=== PATIENT | female | born 1985 | race American Indian/Alaskan Native ===

== ENCOUNTER 2016-07-25 12:13 | Emergency (ER) | payer MEDICAID ==
[2016-07-25 12:59] VITALS: BP 105/68
--- NOTE | 2016-07-25 16:52 | Emergency Department Report ---
ED ENT HPI - General Chief complaint: Dental/Oral Stated complaint: TOOTHACHE/GUM ABCESS Time Seen by Provider: 07/25/16 16:10 Source: patient Mode of arrival: Ambulatory Limitations: No Limitations - History of Present Illness Initial comments: Patient states that she started to notice right lower tooth pain yesterday, tried tylenol and it helped initially but not helping anymore, pain worsened today; denies fevers and bleeding but admits to tasting some purulent discharge today; last time she went to a dentist was over 1 year ago - Related Data Previous Rx's Medication Instructions Recorded Last Taken Type Penicillin Vk [Veetids TAB] 500 mg PO QID #28 tablet 09/17/15 Unknown Rx Ibuprofen [Motrin 600 MG tab] 600 mg PO Q8H PRN #30 tablet 07/25/16 Unknown Rx Penicillin Vk [Veetids TAB] 500 mg PO QID #28 tablet 07/25/16 Unknown Rx traMADol [Ultram 50 MG tab] 50 mg PO Q6HR PRN #10 tablet 07/25/16 Unknown Rx Allergies Allergy/AdvReac Type Severity Reaction Status Date / Time No Known Allergies Allergy Verified 07/25/16 12:58 ED Dental HPI - General Chief complaint: Dental/Oral Stated complaint: TOOTHACHE/GUM ABCESS Time Seen by Provider: 07/25/16 16:10 Source: patient Mode of arrival: Ambulatory Limitations: No Limitations - Related Data Previous Rx's Medication Instructions Recorded Last Taken Type Penicillin Vk [Veetids TAB] 500 mg PO QID #28 tablet 09/17/15 Unknown Rx Ibuprofen [Motrin 600 MG tab] 600 mg PO Q8H PRN #30 tablet 07/25/16 Unknown Rx Penicillin Vk [Veetids TAB] 500 mg PO QID #28 tablet 07/25/16 Unknown Rx traMADol [Ultram 50 MG tab] 50 mg PO Q6HR PRN #10 tablet 07/25/16 Unknown Rx Allergies Allergy/AdvReac Type Severity Reaction Status Date / Time No Known Allergies Allergy Verified 07/25/16 12:58 ED Review of Systems ROS: Stated complaint: TOOTHACHE/GUM ABCESS Other details as noted in HPI ED Past Medical Hx - Past Medical History Hx Hypertension: No Hx Congestive Heart Failure: No Hx Diabetes: No Hx Deep Vein Thrombosis: No Hx Renal Disease: No Hx Sickle Cell Disease: No (Sickle Cell Trait) Hx Seizures: No Hx Asthma: No Hx COPD: No Hx HIV: No - Surgical History Additional Surgical History: X 2 - Social History Smoking Status: Never Smoker Substance Use Type: Alcohol - Medications Home Medications: Home Medications Medication Instructions Recorded Confirmed Last Taken Type Penicillin Vk [Veetids TAB] 500 mg PO QID #28 tablet 09/17/15 Unknown Rx Ibuprofen [Motrin 600 MG tab] 600 mg PO Q8H PRN #30 tablet 07/25/16 Unknown Rx Penicillin Vk [Veetids TAB] 500 mg PO QID #28 tablet 07/25/16 Unknown Rx traMADol [Ultram 50 MG tab] 50 mg PO Q6HR PRN #10 tablet 07/25/16 Unknown Rx ED Physical Exam - General Limitations: No Limitations ED Course Vital Signs 07/25/16 12:57 Temperature 99.2 F Pulse Rate 62 Respiratory 16 Rate Blood Pressure 105/68 O2 Sat by Pulse 100 Oximetry Critical care attestation.: If time is entered above; I have spent that time in minutes in the direct care of this critically ill patient, excluding procedure time. ED Disposition Clinical Impression: Periapical abscess, Dental caries Disposition: DISCHARGED TO HOME OR SELFCARE Is pt being admited?: No Does the pt Need Aspirin: No Condition: Stable Instructions: Dental Abscess (ED) Prescriptions: Ibuprofen [Motrin 600 MG tab] 600 mg PO Q8H PRN #30 tablet PRN Reason: Pain Penicillin Vk [Veetids TAB] 500 mg PO QID #28 tablet traMADol [Ultram 50 MG tab] 50 mg PO Q6HR PRN #10 tablet PRN Reason: Pain Referrals: PRIMARY CARE, [Primary Care Provider] - 3-5 Days Time of Disposition: 16:56 Print Language: FRENCH
[2016-07-25] MEDS ORDERED: ULTRAM PO ONE (16:57)
== END 2016-07-25 17:40 | disposition home or self-care (01) ==
LOC: ED 12:13
DX: K04.7 Periapical abscess without sinus (principal); K02.9 Dental caries, unspecified
CPT/HCPCS: 99282

== ENCOUNTER 2017-01-05 09:46 | Inpatient (IN) | payer MEDICAID ==
[2017-01-05] MEDS ORDERED: PEPCID IV NR (10:12)
[2017-01-05] MEDS ORDERED: REGLAN IV NR (10:12)
[2017-01-05] MEDS ORDERED: BICITRA PO NR (10:12)
--- NOTE | 2017-01-05 10:19 | History and Physical Report ---
History of Present Illness Date of examination: 01/05/17 Date of admission: 01/05/17 09:46 Chief complaint: Repeat C Section with BTL History of present illness: Pt is a 31yo BF EDC 01/11/17; EGA 39 1/7 weeks presents for a repeat C Section with Bilateral Tubal Ligation. She received care at [facility] since 11 weeks and course has been unremarkable except for sickle cell trait. records are available and GBS is Negative. Past History Past Medical History: hematologic disorders (sickle cell trait) Past Surgical History: section (x2) Family/Genetic History: sickle cell/trait Social history: no significant social history, single - Obstetrical History Expected Date of Delivery: 01/11/17 Actual Gestation: 39 Week(s) 1 Day(s) : 2 Medications and Allergies Allergies Allergy/AdvReac Type Severity Reaction Status Date / Time No Known Allergies Allergy Verified 07/25/16 12:58 Home Medications Medication Instructions Recorded Confirmed Last Taken Type Penicillin Vk [Veetids TAB] 500 mg PO QID #28 tablet 09/17/15 Unknown Rx Ibuprofen [Motrin 600 MG tab] 600 mg PO Q8H PRN #30 tablet 07/25/16 Unknown Rx Penicillin Vk [Veetids TAB] 500 mg PO QID #28 tablet 07/25/16 Unknown Rx traMADol [Ultram 50 MG tab] 50 mg PO Q6HR PRN #10 tablet 07/25/16 Unknown Rx Ferrous Sulfate [Feosol 325 MG tab] 325 mg PO BID #60 tablet 01/05/17 Unknown Rx HYDROcodone/APAP 5-325 [[place] 1 each PO Q6HR PRN #30 tablet 01/05/17 Unknown Rx 5/325] Ibuprofen [Motrin] 800 mg PO Q8HR PRN #30 tablet 01/05/17 Unknown Rx Pnv95/Ferrous Fumarate/FA 1 each PO DAILY #30 tablet 01/05/17 Unknown Rx [Prenavite Tablet] Active Meds: Active Medications Citric Acid/Sodium Citrate (Bicitra) 30 ml PO ONCE ONE Stop: 01/05/17 10:13 Famotidine (Pepcid) 20 mg IV ONCE ONE Stop: 01/05/17 10:13 Cefazolin Sodium (Ancef/Sterile Water 2 Gm/20 Ml) 2 gm in 20 mls @ 80 mls/hr IV PREOP NR PRN Reason: Protocol Lactated Ringer's (Lactated Ringers) 1,000 mls @ 2,250 mls/hr IV PREOP RUPALI Stop: 01/06/17 11:27 Oxytocin/Sodium Chloride (Pitocin/Ns 20 Unit/1000ml Drip) 20 units in 1,000 mls @ 0 mls/hr IV TITR RUPALI PRN Reason: As Directed Metoclopramide HCl (Reglan) 10 mg IV ONCE ONE Stop: 01/05/17 10:13 Review of Systems All systems: negative - Physical Exam Breasts: Positive: deferred Cardiovascular: Regular rate Lungs: Positive: Clear to auscultation Abdomen: Positive: normal appearance Genitourinary (Female): Positive: normal external genitalia Vagina: Positive: normal moisture Uterus: Positive: enlarged Extremities: Positive: normal - Obstetrical FHR: category 1 Uterine Contraction Monitor Mode: External Results Result Diagrams: 01/05/17 10:30 All other labs normal. Assessment and Plan - Patient Problems (1) 39 weeks gestation of Onset Date: 01/05/17 Current Visit: Yes Status: Acute Plan to address problem: A: IUP @ 39 1/7 weeks Previous C Section x 2 Desires permanent sterilization P: Admit to L&D for Repeat C Section with BTL (2) Previous delivery affecting Onset Date: 01/05/17 Current Visit: Yes Status: Acute
[2017-01-05] MEDS: LACTATED RINGERS 1,000 ML IV SCH ×2 (10:35→11:36)
[2017-01-05] MEDS ORDERED: PITOCin/NS 20 UNIT/1000ML DRIP 20 UNITS/1,000 ML BAG IV SCH ×2 (11:00→16:00)
[2017-01-05] MEDS ORDERED: ANCEF/STERILE WATER 2 GM/20 ML 2 GM/20 ML SYRINGE IV NR (11:00)
[2017-01-05 11:01] LABS: Basophils % (Auto) 0.1 % (0.0-1.8); Eosinophils % (Auto) 0.8 % (0.0-4.3); Hematocrit 36.4 % (30.3-42.9); Hemoglobin 12.4 gm/dl (10.1-14.3); Mean Corpuscular HGB Conc 34 % (30-34); Mean Corpuscular Hemoglobin 28 pg (28-32); Mean Corpuscular Volume 81 fl (79-97); Platelet Count 181 K/mm3 (140-440); Red Blood Count 4.49 M/mm3 (3.65-5.03); Red Cell Distribution Width 13.3 % (13.2-15.2); White Blood Count 5.9 K/mm3 (4.5-11.0)
[2017-01-05] MEDS ORDERED: BENADRYL IV PRN (13:00)
[2017-01-05] MEDS ORDERED: SODIUM CHLORIDE FLUSH SYRINGE 10 ML IV NR ×2 (13:00→16:00)
[2017-01-05] MEDS ORDERED: DILAUDID IV PRN (13:00)
[2017-01-05] MEDS ORDERED: NARCAN 0.4 MG/1 ML IV PRN ×3 (13:00→15:10)
--- NOTE | 2017-01-05 13:00 | Anesthesia Day of Surgery ---
Anesthesia Day of Surgery - Day of Surgery Patient Examined: Yes Patient H&P Reviewed: Yes Patient is NPO: Yes
--- NOTE | 2017-01-05 13:00 | Anesthesia Consultation ---
Anesthesia Consult and Med Hx Date of service: 01/05/17 - Airway Anesthetic Teeth Evaluation: Good ROM Head & Neck: Adequate Mental/Hyoid Distance: Adequate Mallampati Class: Class II Intubation Access Assessment: Probably Good - Pre-Operative Health Status ASA Pre-Surgery Classification: ASA2 Proposed Anesthetic Plan: Epidural, Spinal - Pulmonary Hx Smoking: No Hx Asthma: No COPD: No Hx Pneumonia: No - Cardiovascular System Hx Hypertension: No - Central Nervous System Hx Seizures: No Hx Psychiatric Problems: No - Gastrointestinal Hx Gastroesophageal Reflux Disease: Yes - Endocrine Hx Renal Disease: No Hx End Stage Renal Disease: No Hx Hypothyroidism: No Hx Hyperthyroidism: No - Hematic Hx Anemia: No Hx Sickle Cell Disease: Yes (sickle cell screen-positive) - Other Systems Hx Alcohol Use: No
[2017-01-05] MEDS ORDERED: MORPHINE ONE (13:20)
[2017-01-05] MEDS ORDERED: NEO SYNEPHRINE/NS Syringe(OR USE) IV ONE (14:00)
[2017-01-05] MEDS ORDERED: SUBLIMAZE ONE (14:16)
[2017-01-05] MEDS ORDERED: NACL 0.9% 1000 ML 1,000 ML ONE (14:30)
--- NOTE | 2017-01-05 14:44 | Post Anesthesia Evaluation ---
- Post Anesthesia Evaluation Patient Participated: Yes Airway Patent: Yes Stable Respiratory Function: Yes Temp > 96.8F: Yes Pain Manageable: Yes Adequeate Hydration: Yes Anesthesia Complications: No Block Receding Appropriately: Not Applicable
--- NOTE | 2017-01-05 15:00 | Operative Report ---
Operative Report Operative Report: Date of procedure: 01/05/2017 Pre-operative diagnosis: 1. Intrauterine at 39-1/7 weeks 2. Previous 2 3. Desires permanent sterilization Post-operative diagnosis: Same Procedure name(s): 1. Repeat low transverse section 2. Bilateral tubal ligation Surgeon: Petey Mistry MD Diesel Scoop Operator: None Anesthesia: Spinal anesthesia by Dr. Jeremías Santiago EBL: 600 mL's Findings: A 3288 g male Apgars 8 at 1 minute 9 at 5 minutes. Clear amniotic fluid. Normal uterus with lower uterine adhesions. Normal tubes and ovaries bilaterally. Procedure: After the patient was prepped and draped in usual sterile fashion, and after satisfactory level of epidural anesthesia was obtained, the skin knife was used to make a transverse skin incision through the previous skin scars. The incision was excised down to layer of the fascia, which was nicked in the midline and extended laterally using the Bovie cautery. The rectus muscles were dissected off the rectus fascia both superiorly and inferiorly. The rectus bellies in the midline, and the peritoneum was entered under direct visualization. The peritoneal incision was extended superiorly and inferiorly. A bladder flap was created and the bladder blade was then placed. The uterus was scored in a curvilinear linear fashion, entered in the midline revealing clear amniotic fluid. The infant's head was delivered onto the surgical field, and the oropharynx and nasopharynx were bulb suctioned. The rest of the infant's body was delivered, cord was doubly clamped and cut and the infant was handed to the waiting respiratory team. The placenta was manually removed from the uterus, and the uterus removed from its normal anatomical position. After gentle uterine lavage, the incision was inspected and found to be without extensions. It was then closed in 2 layers using 0 Vicryl suture in a running interlocking fashion, the second layer imbricating the first. At this point, attention was turned to the tubal ligation. First the right fallopian tube was grasped using the [place], and after identifying the fimbriated end the right tube, the Filshie clip was applied to the proximal portion of the tube. The same procedure was performed on the left fallopian tube. The tube was grasped using a [place], and after first identifying the fimbriated end of the left fallopian tube, the Filshie clip was applied to the proximal portion of the tube. After good hemostasis was achieved, copious amounts or irrigation was performed , and the gutters were suctioned free of blood and blood clots. The Tisseel sealant was sprayed across the uterine incision. The uterus was then returned to its normal anatomical position, and after excellent hemostasis assured, the peritoneum was re-approximated using 3-0 Vicryl suture in a running interlocking fashion, and then the rectus muscles were re-approximated using 3- 0 Vicryl suture in a yhivkh-[id number] configuration. The fascia was then re- approximated using 0 Vicryl suture in running interlocking fashion. The subcutaneous layer was made hemostatic using Bovie cautery, the Tisseel sealant was sprayed across the fascial incision and the skin edges re-approximated using 4-0 Vicryl suture in a sub-cuticular fashion. Patient tolerated the procedure well was transported to recovery in stable condition.
[2017-01-05] MEDS ORDERED: WATER FOR IRRIG STERILE IR ONE (15:05)
[2017-01-05] MEDS ORDERED: NACL 0.9% IR ONE (15:05)
[2017-01-05] MEDS ORDERED: TUCKS PAD TP PRN (15:10)
[2017-01-05] MEDS ORDERED: MILK OF MAGNESIA PO PRN (15:10)
[2017-01-05] MEDS ORDERED: MYLICON PO PRN (15:10)
[2017-01-05] MEDS ORDERED: LANSINOH TP PRN (15:10)
[2017-01-05] MEDS ORDERED: SENOKOT PO PRN (15:10)
[2017-01-05] MEDS ORDERED: PHENERGAN PR PRN (15:10)
[2017-01-05] MEDS ORDERED: NORCO 5/325 PO PRN (15:10)
[2017-01-05] MEDS ORDERED: TYLENOL PO PRN (15:10)
[2017-01-05] MEDS: TORADOL IV PRN ×2 (15:33→22:45)
[2017-01-05] MEDS: ZOFRAN IV PRN ×2 (15:43→22:47)
[2017-01-05] MEDS: D5LR 1,000 ML IV SCH (19:28)
[2017-01-05] MEDS: ANCEF/NS 1 GM/50 ML 1 GM/50 ML BAG IV SCH (22:51)
[2017-01-06] MEDS: D5LR 1,000 ML IV SCH (02:56)
[2017-01-06] MEDS: TORADOL IV PRN (04:25)
[2017-01-06 05:52] LABS: Hematocrit 31.5 % (30.3-42.9); Hemoglobin 10.5 gm/dl (10.1-14.3)
[2017-01-06] MEDS ORDERED: BOOSTRIX IM ONE (06:00)
[2017-01-06] MEDS: ANCEF/NS 1 GM/50 ML 1 GM/50 ML BAG IV SCH (06:39)
--- NOTE | 2017-01-06 08:24 | Progress Note ---
Assessment and Plan - Patient Problems (1) 39 weeks gestation of Onset Date: 01/05/17 Current Visit: Yes Status: Resolved (2) Previous delivery affecting Onset Date: 01/05/17 Current Visit: Yes Status: Resolved (3) S/P repeat low transverse Onset Date: 01/06/17 Current Visit: No Status: Resolved Plan to address problem: A: S/P Repeat C Section with BTL - POD #1 Doing well P: Continue RPOC Anticipate discharge in 24-48hrs Subjective - Subjective Date of service: 01/06/17 Principal diagnosis: s/p Repeat C Section with BTL - POD #1 Interval history: Pt is s/p a repeat C Section with Bilateral Tubal Ligation, and feeling well without complaints. She is tolerating a liquid diet without nausea or vomiting. + Flatus. Patient reports: appetite normal, voiding normally, pain well controlled, flatus , ambulating normally : doing well, bottle feeding Objective - Vital Signs Latest vital signs: Vital Signs Temp Pulse Resp BP Pulse Ox 01/06/17 04:38 98.4 F 61 20 92/53 01/06/17 00:55 98.2 F 80 18 107/64 01/05/17 21:18 97.8 F 66 18 98/58 01/05/17 16:00 97.6 F 67 20 114/67 01/05/17 15:49 97.5 F L 01/05/17 15:40 58 L 12 117/66 98 01/05/17 15:31 97.5 F L 01/05/17 15:30 75 11 L 115/60 99 01/05/17 15:20 56 L 9 L 114/60 98 01/05/17 15:11 72 12 117/57 100 01/05/17 15:00 57 L 12 107/60 100 01/05/17 14:50 65 11 L 107/60 100 01/05/17 14:40 97.6 F 68 13 111/55 100 01/05/17 14:39 69 12 99 Intake and Output 01/05/17 01/06/17 01/06/17 22:59 06:59 14:59 Intake Total 2975 2150 Output Total 400 900 Balance 2575 1250 Intake: IV 2975 1550 ANCEF/NS 1 GM/50 ML 1 gm 100 In 50 ml @ 100 mls/hr IV Q8H RUPALI Rx#:[id number] D5lr 1,000 ml @ 125 mls/ 375 1450 hr IV DIRECT RUPALI Rx#: [id number] PITOCin/NS 20 UNIT/1000ML 500 DRIP 20 units In 1,000 ml @ 250 mls/hr IV DIRECT RUPALI Rx#:[id number] Oral 240 Intake, Free Water 360 Output: Urine 400 900 Indwelling Catheter 900 Other: Total, Intake Amount 240 Total, Output Amount 900 Voiding Method Indwelling Catheter - Exam Breasts: Present: deferred Cardiovascular: Present: Regular rate Lungs: Present: Clear to auscultation Abdomen: Present: normal appearance, soft Uterus: Present: normal, firm, fundal height below umbilicus Extremities: Present: normal Incision: Present: normal, dry, intact, dressed - Labs Labs: Abnormal lab results 01/05/17 Range/Units 10:30 [place] % (Auto) 9.2 H (0.0-7.3) % Lymph # 1.1 L (1.2-5.4) K/mm3 Seg Neutrophils % 71.9 H (40.0-70.0) % Laboratory Tests 01/05/17 01/05/17 01/05/17 10:30 10:30 10:30 WBC 5.9 RBC 4.49 Hgb 12.4 Hct 36.4 MCV 81 MCH 28 MCHC 34 RDW 13.3 Plt Count 181 Lymph % (Auto) 18.0 [place] % (Auto) 9.2 H Eos % (Auto) 0.8 Baso % (Auto) 0.1 Lymph # 1.1 L [place] # 0.5 Eos # 0.0 Baso # 0.0 Seg Neutrophils % 71.9 H Seg Neutrophils # 4.2 RPR Nonreactive Blood Type A POSITIVE Antibody Screen Negative 01/06/17 05:13 WBC RBC Hgb 10.5 Hct 31.5 MCV MCH MCHC RDW Plt Count Lymph % (Auto) [place] % (Auto) Eos % (Auto) Baso % (Auto) Lymph # [place] # Eos # Baso # Seg Neutrophils % Seg Neutrophils # RPR Blood Type Antibody Screen
[2017-01-06] MEDS: PERCOCET 5/325 PO PRN ×3 (08:54→20:26)
[2017-01-06] MEDS: PRENATAL VITAMIN PO SCH (10:37)
[2017-01-06] MEDS: FEOSOL PO SCH (10:37)
--- NOTE | 2017-01-06 10:53 | Progress Note ---
Subjective Date of service: 01/06/17 Principal diagnosis: s/p Repeat C Section with BTL - POD #1 Interval history: 1st POD after Patient is in the bed, comfortable. Pain is well controlled with pain meds. Ambulated well. No residual neurological deficit. No pruritus. No anesthesia complications Objective - Constitutional Vitals: Vital Signs - 12hr 01/06/17 01/06/17 01/06/17 00:55 04:38 09:23 Temperature 98.2 F 98.4 F 98.5 F Pulse Rate 80 61 70 Respiratory 18 20 18 Rate Blood Pressure 107/64 92/53 109/57 - Labs CBC & Chem 7: 01/06/17 05:13 Labs: Abnormal lab results 01/05/17 Range/Units 10:30 [place] % (Auto) 9.2 H (0.0-7.3) % Lymph # 1.1 L (1.2-5.4) K/mm3 Seg Neutrophils % 71.9 H (40.0-70.0) %
[2017-01-06] MEDS ORDERED: M-M-R II VACCINE SUB-Q ONE (15:12)
[2017-01-06] MEDS: MOTRIN PO PRN (21:12)
[2017-01-07] MEDS: MOTRIN PO PRN ×3 (03:08→23:33)
--- NOTE | 2017-01-07 08:37 | Progress Note ---
Assessment and Plan - Patient Problems (1) 39 weeks gestation of Onset Date: 01/05/17 Current Visit: Yes Status: Resolved (2) Previous delivery affecting Onset Date: 01/05/17 Current Visit: Yes Status: Resolved (3) S/P repeat low transverse Onset Date: 01/06/17 Current Visit: No Status: Resolved Plan to address problem: A: S/P Repeat C Section with BTL - POD #2 Doing well P: Continue RPOC Anticipate discharge tomorrow Subjective - Subjective Date of service: 01/07/17 Principal diagnosis: s/p Repeat C Section with BTL - POD #2 Interval history: Pt is s/p a repeat C Section with Bilateral Tubal Ligation, and feeling well without complaints. She is tolerating a reg diet without nausea or vomiting, ambulating and voiding without difficulty. + Flatus. Patient reports: appetite normal, voiding normally, pain well controlled, flatus , ambulating normally : doing well, bottle feeding Objective - Vital Signs Latest vital signs: Vital Signs Temp Pulse Resp BP 01/07/17 03:08 18 01/07/17 00:15 98.0 F 71 18 112/61 01/06/17 17:52 98.6 F 83 18 106/55 01/06/17 09:23 98.5 F 70 18 109/57 Intake and Output 01/06/17 01/07/17 01/07/17 22:59 06:59 14:59 Intake Total 720 360 Output Total 800 Balance -80 360 Intake: Oral 720 360 Output: Urine 800 Void 800 Other: Total, Intake Amount 240 120 Total, Output Amount 800 # Voids Void 1 1 - Exam Breasts: Present: deferred Cardiovascular: Present: Regular rate Lungs: Present: Clear to auscultation Abdomen: Present: normal appearance, soft Uterus: Present: normal, firm, fundal height below umbilicus Extremities: Present: normal Incision: Present: normal, dry, intact, dressed
--- NOTE | 2017-01-07 10:17 | Discharge Summary ---
Providers - Providers Date of Admission: 01/05/17 09:46 Date of discharge: 01/08/17 Attending physician: JONATAN VIEIRA Primary care physician: JONATAN VIEIRA Hospitalization Reason for admission: section, IUP at term Delivery: Procedure: section, bilateral tubal ligation, repeat low transverse Episiotomy: none Laceration: none Incision: normal, dry, intact Other procedures: tubal ligation complications: none Discharge diagnosis: IUP at term delivered [place] baby: male Hospital course: Pt is a 31yo BF EDC 01/11/17; EGA 39 / weeks who presented to [facility] for a repeat C Section with Bilateral Tubal Ligation. She underwent an uncomplicated Repeat C Section with BTL and tolerated the procedure well. Post-operative course was unremarkable, and by POD #2 she was tolerating a reg diet without nausea or vomiting, ambulating and voiding without difficulty. She was therefore discharged to home on POD #3 in stable condition. Condition at discharge: Good Disposition: DC-01 TO HOME OR SELFCARE - Discharge Diagnoses (1) 39 weeks gestation of Status: Resolved (2) Previous delivery affecting Status: Resolved (3) S/P repeat low transverse Status: Resolved Plan - Discharge Medications Prescriptions: Ferrous Sulfate [Feosol 325 MG tab] 325 mg PO BID #60 tablet HYDROcodone/APAP 5-325 [[place] 5/325] 1 each PO Q6HR PRN #30 tablet PRN Reason: Pain Ibuprofen [Motrin] 800 mg PO Q8HR PRN #30 tablet PRN Reason: Moder Pain Unrelieved By [place] Pnv95/Ferrous Fumarate/FA [Prenavite Tablet] 1 each PO DAILY #30 tablet - Provider Discharge Summary Activity: routine, no sex for 6 weeks, no heavy lifting 4 weeks, no strenuous exercise Diet: routine Instructions: routine Additional instructions: [] Smoking cessation referral if applicable(refer to patient education folder for contact #) [] Refer to [facility] Booklet Call your doctor immediately for: * Fever > 100.5 * Heavy vaginal bleeding ( >1 pad per hour) * Severe persistent headache * Shortness of breath * Reddened, hot, painful area to leg or breast * Drainage or odor from incision. * Keep incision clean and dry at all times and follow doctor's instructions regarding bathing/showering - Follow up plan Follow up: JONATAN VIEIRA MD [Primary Care Provider] - 14 Days
[2017-01-07] MEDS: PRENATAL VITAMIN PO SCH (10:43)
[2017-01-07] MEDS: FEOSOL PO SCH (10:44)
[2017-01-07] MEDS: PERCOCET 5/325 PO PRN ×3 (10:44→23:32)
[2017-01-08] MEDS: PERCOCET 5/325 PO PRN (07:17)
[2017-01-08] MEDS: FEOSOL PO SCH (09:31)
[2017-01-08] MEDS: PRENATAL VITAMIN PO SCH (09:31)
[2017-01-08 12:52] VITALS: BP 114/71
== END 2017-01-08 13:40 | disposition home or self-care (01) | DRG 766 ==
LOC: APU 09:46 → OB 16:23
PROVIDERS: ADMIT Obstetrics & Gynecology; ATTEND Obstetrics & Gynecology
PROC: 10D00Z1 Extraction of Products of Conception, Low, Open Approach (ICD-10-PCS; principal; 2017-01-05)
PROC: 0UL70CZ Occlusion of Bilateral Fallopian Tubes with Extraluminal Device, Open Approach (ICD-10-PCS; 2017-01-05)
PROC: 3E0234Z Introduction of Serum, Toxoid and Vaccine into Muscle, Percutaneous Approach (ICD-10-PCS; 2017-01-06)
DX: O34.211 Maternal care for low transverse scar from previous cesarean delivery (principal); O99.62 Diseases of the digestive system complicating childbirth; K21.9 Gastro-esophageal reflux disease without esophagitis; Z30.2 Encounter for sterilization; Z23 Encounter for immunization; Z3A.39 39 weeks gestation of pregnancy; Z37.0 Single live birth
CPT/HCPCS: 36415; 85014; 85018; 85025; 86592; 86850; 86900; 86901; 99211; C9250; G0463; J0690; J1170; J1885; J2270; J2370; J2405; J2590; J2765; J3010; J7030; J7120; J7121